=== PATIENT | male | born 1960 | race Caucasian/White ===

== ENCOUNTER 2017-02-24 08:48 | Day surgery (SDC) | payer BC ==
--- NOTE | 2017-02-23 13:13 | Pre-Procedure Note/Attestation ---
Pre-Procedure Note/Attestation Complete Prior to Procedure Planned Procedure: left Procedure Narrative: Left shoulder scope, sad, mini ayaz, subscap repair, biceps tenodesis and possible labral repair Indications for Procedure Pre-Operative Diagnosis: left shoulder subscap tear, biceps tendon tear, labral tear Attestation I attest that I discussed the nature of the procedure; its benefits; risks and complications; and alternatives (and the risks and benefits of such alternatives ), prior to the procedure, with the patient (or the patient's legal bank representative). I attest that, if there was a reasonable possibility of needing a blood transfusion, the patient (or the patient's legal bank representative) was given the [place] [facility] standardized written summary, pursuant to the Dillan Mitchel Blood Safety Act ([place] Health and Safety Code # 1645, as amended). I attest that I re-evaluated the patient just prior to the surgery and that there has been no change in the patient's H&P, except as documented below:NONE ASHLEY ARANA Feb 23, 2017 13:13
[2017-02-24] VITALS (7 sets, daily range): BP systolic 127–161; BP diastolic 75–104
[~2017-02-24] VITALS: Ht 182.9 cm; Wt 79.4 kg
--- NOTE | 2017-02-24 08:02 | Anethesia Preoperative Eval ---
Anesthesia Pre-op PMH/ROS General Date of Evaluation: Feb 24, 2017 Mallampati Score Class I : Soft palate, uvula, fauces, pillars visible Class II: Soft palate, uvula, fauces visible Class III: Soft palate, base of uvula visible Class IV: Only hard plate visible Allergies: Coded Allergies: No Known Allergies (Unverified , 02/20/17) MARY WHITTAKER M.D. Feb 24, 2017 08:02
[~2017-02-24 08:48] MED LIST: ceFAZolin 1gm in D5W 55ml IVP ONE; celeBREX 200mg Cap **SURGERY PATIENTS ONLY ORAL ONE; oxyCONTIN 20mg tab ORAL ONE
[2017-02-24] MEDS ORDERED: Tylenol #3 tab (300mg/30mg) ORAL PRN (11:45)
[2017-02-24] MEDS ORDERED: Norco 5mg/325mg tab ORAL PRN ×2 (11:45→13:00)
[2017-02-24] MEDS ORDERED: HYDROmorphone 1mg/ml Carpuject SUBQ PRN (11:45)
[2017-02-24] MEDS ORDERED: D5 1/2NS 1,000 ML IV SCH (11:45)
[2017-02-24] MEDS ORDERED: LR 1000ml ONE (12:00)
[2017-02-24] MEDS ORDERED: Alfentanil 2ml Inj ONE (12:00)
[2017-02-24] MEDS ORDERED: NS Irrig 4000ml IRRIG ONE (12:00)
[2017-02-24] MEDS ORDERED: Dexamethasone 4mg/ml vial ONE (12:00)
[2017-02-24] MEDS ORDERED: Propofol 10mg/ml 20ml IV ONE (12:00)
[2017-02-24] MEDS ORDERED: Midazolam 2mg/2ml Inj ONE (12:00)
[2017-02-24] MEDS ORDERED: Lidocaine 1% MPF 10mg/ml 5ml ONE (12:00)
[2017-02-24] MEDS ORDERED: LR 1000ml 1,000 ML IVLG SCH (12:58)
[2017-02-24] MEDS ORDERED: LORazepam Inj 2mg/ml 1ml IV PRN (13:00)
[2017-02-24] MEDS ORDERED: Norco 7.5mg/325mg tab ORAL PRN (13:00)
[2017-02-24] MEDS ORDERED: DiphenhydrAMINE 50mg/ml Inj IVP PRN (13:00)
[2017-02-24] MEDS ORDERED: Hydromorphone 0.5mg/0.5ml inj IVP PRN (13:00)
[2017-02-24] MEDS ORDERED: Meperidine 25mg/0.5ml Inj (FOR RIGORS ONLY) IV PRN (13:00)
[2017-02-24] MEDS ORDERED: Atropine Inj 1mg/10ml Syr IV PRN (13:00)
[2017-02-24] MEDS ORDERED: Ketorolac 30mg Inj IV PRN (13:00)
[2017-02-24] MEDS ORDERED: Oxycodone/Acetaminophen 5-325 ORAL PRN (13:00)
[2017-02-24] MEDS ORDERED: Metoclopramide 10mg/2ml Inj IVP PRN (13:00)
[2017-02-24] MEDS ORDERED: Ketorolac 60mg Inj IV PRN (13:00)
[2017-02-24] MEDS ORDERED: fentaNYL 100 mcg/2 mL IV PRN (13:00)
[2017-02-24] MEDS ORDERED: Midazolam 2mg/2ml Inj IVP PRN (13:00)
[2017-02-24] MEDS ORDERED: Ropivacaine 5mg/ml Vial 20ml INJ ONE ×2 (13:06→13:38)
--- NOTE | 2017-02-24 13:07 | Anethesia Preoperative Eval ---
Anesthesia Pre-op PMH/ROS General Date of Evaluation: Feb 24, 2017 Time of Evaluation: 12:14 Anesthesiologist: Anjum ASA Score: ASA 1 Mallampati Score Class I : Soft palate, uvula, fauces, pillars visible Class II: Soft palate, uvula, fauces visible Class III: Soft palate, base of uvula visible Class IV: Only hard plate visible Mallampati Classification: Class I Surgeon: Juana Diagnosis: L Shoulder Pain Surgical Procedure: L Shoulder Arthroscopy, Rotator Cuff Repair Anesthesia History: none Family History: no anesthesia problems Allergies: Coded Allergies: No Known Allergies (Unverified , 02/20/17) Medications: see eMAR Past Medical History Musculoskeletal/Integumentary: Reports: other - Back Injury PSxH Narrative: Lumbar Spine SX Anesthesia Pre-op Phys. Exam Physician Exam Last Vital Signs Date Time Temp Pulse Resp B/P Pulse Ox O2 Delivery O2 Flow Rate FiO2 02/24/17 09:58 98.2 59 18 127/75 99 Room Air Constitutional: NAD Neurologic: CN 2-12 intact Cardiovascular: RRR Respiratory: CTA Gastrointestinal: S/NT/ND Airway Exam Mallampati Score: Class I MO: full ROM: full Teeth: intact Anesthesia Pre-op A/P Risk Assessment & Plan Assessment: ASA 1 Plan: GA, BIS, Glidescope, L Supraclavicular Block Status Change Before Surgery: No Pre-Antibiotics Dru Grams Ancef IV Given Within 1 Hr of Incision: Yes Time Given: 12:36 Mik Valero MD Feb 24, 2017 13:07
--- NOTE | 2017-02-24 13:10 | Immediate Post-Op Evaluation ---
Immediate Post-Op Evalulation Immediate Post-Op Evalulation Procedure: L Shoulder Arthroscopy, Rotator Cuff Repair Date of Evaluation: Feb 24, 2017 Time of Evaluation: 15:22 IV Fluids: 1000 LR Blood Products: 0 Estimated Blood Loss: 25 Urinary Output: 0 Blood Pressure Systolic: 151 Blood Pressure Diastolic: 86 Pulse Rate: 73 Respiratory Rate: 16 O2 Sat by Pulse Oximetry: 100 Temperature (Fahrenheit): 97.1 Pain Score (1-10): 1 Nausea: No Vomiting: No Complications 0 Patient Status: awake, reacts, patent, extubated, none Hydration Status: adequate Dru Grams Ancef IV Given Within 1 Hr of Incision: Yes Time Given: 12:36 Mik Valero MD Feb 24, 2017 13:10
--- NOTE | 2017-02-24 13:11 | 48 Hour Post Anesthesia Eval ---
Post Anesthesia Evaluation Procedure: L Shoulder Arthroscopy, Rotator Cuff Repair Date of Evaluation: Feb 24, 2017 Time of Evaluation: 15:32 Blood Pressure Systolic: 134 0: 76 Pulse Rate: 72 Respiratory Rate: 18 Temperature (Fahrenheit): 98.2 O2 Sat by Pulse Oximetry: 100 Airway: patent Nausea: No Vomiting: No Pain Intensity: 1 Hydration Status: adequate Cardiopulmonary Status: Stable Mental Status/LOC: patient returned to baseline Follow-up Care/Observations: 0 Post-Anesthesia Complications: 0 Follow-up care needed: ready to discharge Mik Valero MD Feb 24, 2017 13:11
--- NOTE | 2017-02-24 14:57 | Brief Operative Note ---
Immediate Post Operative Note Operative Note Chief Complaint: left shoulder pain Pre-op Diagnosis: left shoulder subscap tear labral tear Procedure: Left shoulder scope, SAD, mini ayaz, subscap repair, labral repair, biceps tenodesis Post-op Diagnosis: same as pre-op Findings: consistent w/pre-op dx studies Surgeon: md justin Cartridge Assembler: valery adorno Anesthesiologist: md shona Anesthesia: general Specimen: none Complications: none Condition: stable Estimated Blood Loss: minimal Drains: none Implant(s) used?: Yes - bioemt, arthrex HILARIA ADORNO Feb 24, 2017 14:57
--- NOTE | 2017-02-25 00:30 | Operative Note - Dictated ---
DATE OF OPERATION: 02/24/2017 PREOPERATIVE DIAGNOSES: 1. Left shoulder subscapularis tear. 2. Left shoulder biceps subluxation from the bicipital groove. 3. Left shoulder anterior as well as inferior labral tearing with significant cyst formation. 4. Left shoulder subacromial impingement. POSTOPERATIVE DIAGNOSES: 1. Left shoulder subscapularis tear. 2. Left shoulder biceps subluxation from the bicipital groove. 3. Left shoulder anterior as well as inferior labral tearing with significant cyst formation. 4. Left shoulder subacromial impingement. 5. Significant anterior as well as anterior inferior chondral damage over the anterior leading edge of the glenoid measuring 7 mm in width and 1 cm in length at the area of the labral tear. PROCEDURES: 1. Left shoulder arthroscopy and extensive intra-articular shaving. 2. Left shoulder biceps tenotomy and tenodesis with mini-subpectoral incision. 3. Left shoulder anterior labral repair using 2 Biomet 1.5 mm JuggerKnot anchors with decompression of paralabral cyst. 4. Left shoulder arthroscopic subscapularis repair using a single Biomet 2.9 mm JuggerKnot anchor. 5. Left shoulder subacromial bursoscopy, bursectomy, and subacromial decompression. 6. Left shoulder mini-Reggie procedure (resection of inferior 30% of the distal end of the clavicle for coplaning). 7. Chondroplasty resection of loose fragments of chondral damage from the glenohumeral joint. SURGEON: Igor Arias M.D. CYBER WORKFORCE DEVELOPER AND MANAGER: Taylor Jasso PA-C. Generator Repairer was present during the actual operative portion of the case and was important and essential part of the operation. During the operation, the assistant principal held and operated the arthroscopic camera for visualization, assisted by manipulating the arm to help with visualization, and helped with essential parts of the repair process as necessary such as operating surgical instruments under surgeon supervision, suture management, and wound closures. ANESTHESIOLOGIST: Mik Valero M.D. ANESTHESIA: General LMA anesthesia combined with interscalene block. EBL: Minimal. COMPLICATIONS: None. SURGICAL INDICATION: Patient is a 56-year-old male who sustained the above injury to his shoulder. The patient was treated non-operative initially, but this did not alleviate the patients symptoms. Therefore, after discussing all non-surgical and surgical options, and discussing all foreseeable risk and benefits of surgery, the patient opted for surgical treatment as described above. PATIENT POSITIONING: Patient was brought to the operating room table and was placed on the operating room table. All pressure points were well padded. General anesthesia was induced and patient was then placed in the lateral decubitus position. All pressure points were well padded again and an axillary roll was placed. Patient shoulder was then prepped and draped in the usual sterile fashion. Time out was performed and the appropriate preoperative antibiotic was given by the anesthesiologist. EXAMINATION OF SHOULDER UNDER ANESTHESIA: The shoulder was examined under anesthesia with all muscles well relaxed. The shoulder was forward flexed, abducted and was placed through full range of external and internal rotation. The anterior, posterior, and inferior stability of the shoulder was checked. The exam revealed no evidence of adhesive capsulitis and no evidence of instability. PORTAL PLACEMENT: The posterior portal was established 2 cm inferior and 1 cm medial to the edge of the posterior acromion. 1 cm skin incision was made using an eleven blade and using the blunt obturator, the cannula was gently placed through the capsule. The midglenoid portal was established just lateral to the coracoid process under direct visualization. Direction of the cannula was first established using a spinal needle, and subsequently, the cannula was placed through the capsule with a blunt obturator. The anterior superior cannula was established under direct visualization off the anterior lateral edge of the acromion and just anterior to the biceps tendon through the rotator interval. The directional of cannula was first established using a spinal needle, and subsequently, the cannula was placed through the capsule with a blunt obturator. DIAGNOSTIC ARTHROSCOPY: The biceps tendon was probed and pulled through the joint for visualization. The biceps appeared to be normal. There was significant subluxation medially and it was underneath the previous attachment of the subscapularis. The biceps anchor was palpated with a probe and was visualized. There was some degenerative superior labral tearing. The posterior labrum and axillary recess was visualized. This was normal and there was no evidence of loose cartilage or fragments in this area. There was extensive chondral damage anteriorly as well as anterior inferiorly with unstable chondral flap with loose fragments in that area. The articular surface of the rotator cuff was visualized and probed next. There was no evidence of articular sided rotator cuff tear extending from the supraspinatus back to the posterior cuff. The Humeral head articular surface was then visualized. There was no evidence of articular cartilage damage. Next the anterior labrum, middle gleno-humeral ligament, subscapularis tendon, and the anterior inferior gleno-humeral ligament were evaluated. The anterior labrum, middle gleno-humeral ligament, and anterior inferior gleno-humeral ligaments were intact. However, the anterior inferior labrum had a large tear in it and extended from 6 o'clock to 9 o'clock position. This was in the same area as the cartilage damage. Also, there was a full-thickness tear of the subscapularis, although subscapularis was very mobile. At this point, the scope was moved to the midglenoid portal and the posterior structures including the posterior labrum, posterior capsule and posterior cuff were visualized. These structures were completely normal. The subscapularis recess was devoid of any loose bodies and the anterior capsule was well attached to the humeral neck. The middle and anterior inferior glenohumeral ligament was visualized. These structures were completely normal. OPERATIVE DEBRIDEMENTS AND REPAIR: Care was given to all partial thickness tears and frayed structures in the shoulder joint. The frayed rotator cuff and labrum was debrided using a shaver initially through the anterior portal and subsequently through the posterior portal to complete the debridement. This allowed for smooth debridement of all affected structures and all loose fragments were removed. The scope was placed in the anterior-superior cannula for visualization. Through the posterior cannula, initially, care was given to the posterior capsule. The posterior capsule was first prepared using a rasp to create microbleeding. Using standard suture passing instruments, a posterior pinch tuck plicating balancing suture was placed in the posterior inferior glenohumeral ligament through the labrum in a horizontal mattress fashion. The Suture was then placed outside the posterior cannula and was tied after completion of the anterior repair using Revo non-sliding knot with alternating-post half hitches. Then, through the midglenoid cannula, care was given to the torn anterior labrum. The scar portion of the anterior labrum was first mobilized with a liberator elevator off the glenoid neck. Once this was accomplished, the mobilization was taken more inferiorly all the way down to the 6 oclock position of the glenoid to allow transport of the labrum with the attached anterior inferior gleno-humeral ligament superiorly. The glenoid rim was then prepared by debriding it using a shaver and a julieth to provide bleeding bone for accepting the labrum and the ligament. Using the guide, drill holes were made at the 5, 4, and 2:30 oclock positions of the glenoid 1-2 mm medial to the margin of the articular cartilage on the glenoid surface. A all suture anchor loaded with a non-absorbable #2 strong suture was then placed and tapped through this drill hole. The security of the anchor inside the bone was checked and it was assured that the anchor is well seated and not proud. Using standard suture passing instruments and using pinch-tuck technique, the anterior inferior gleno-humeral ligament was shifted from inferiorly to anterior-superior direction and was incorporated with the labral bite. The suture was then passed through the capsulolabral complex, and it was then secured using a SMC sliding knot followed by 3 alternating-post half hitches. This process was performed for all anchors. The security of the repair was assured with a probe. The position of the humeral head was checked and it appeared that the head was sitting centrally within the glenoid as judged by the central bare area. At this point, care was given to the biceps tendon. A suture was placed through the biceps tendon and biceps tenotomy was performed. As the biceps was in the way of the subscapularis repair, decision was made to do an open subpectoral biceps tenodesis and then come back and fixed the subscapularis. Through a separate and distinct incision, a small incision was made underneath the pectoralis and actually fold. The incision was taken through subcutaneous tissue down to the humerus. Attachments were performed hugging the humerus to avoid damage to the neurovascular structure medially. At this point, the biceps tendon was identified in that area. This was retrieved through this incision and the excess biceps tendon was cut. A whipstitch was placed in the biceps tendon. A humeral socket was drilled to the size of 7 mm unicortically. Subsequently, the biceps tendon was dunked in the subpectoral area 1.5 cm proximal to the musculotendinous junction and was fixed with a Arthrex SwiveLock device. Additional sutures were used to tie the biceps over that area and there was excellent fixation. The arm was placed through range of motion. There was no excessive tension on the biceps tendon. Wounds were thoroughly irrigated using copious amount of fluid. This area was closed using 2-0 Vicryl suture and 3-0 Monocryl suture. At this point, care was given to the subscapularis repair. The posterior portal, anterior superior and midglenoid portals were established again. The subscapularis was visualized. At this point, the footprint of the subscapularis was debrided off the bone and the bone was eburnated to a bleeding surface. A 2.9 mm JuggerKnot anchor was placed and at this point, 2 horizontal mattress sutures were placed through the subscapularis. The sutures were then used to tie the subscapularis back onto the footprint. SMC knot followed with 3 half hitches were used. This provided excellent stability to subscapularis and great tension on the subscapularis. The anatomical structures appeared to be normal once this repair was done. At this point, care was given to the subacromial space. DIAGNOSTIC BURSOSCOPY AND SUBACROMIAL DECOMPRESSION: The subacromion bursa was entered from the posterior portal. The anterior portal was established under the CA ligament using a switching stick. Subacromial arthroscopy was initiated. There was extensive bursitis and thickened and inflamed bursa tissue present. The CA ligament appeared to be scuffed and frayed. The shaver was placed through the anterior cannula and debridement of the hypertrophic bursa tissue was accomplished. Once visualization was adequate, a lateral portal was established using a blunt trochar in the mid portion of the acromion bone in the anterior-posterior direction and approximately 2 cm lateral to the lateral edge of the acromion. Using combination of shaver and electrocautery the CA ligament was released from the undersurface of the acromion and a complete bursectomy was accomplished. At this point, a subacromial decompression was performed using a julieth initially taking off 5-8 mm of the anterolateral edge of the acromion from the lateral portal and viewing from the posterior portal. Then the lateral border of the undersurface of the acromion was decompressed to the same dept as the anterolateral edge. A posterior trough was then created in the acromion in line with the posterior edge of the clavicle. At this point, the scope was placed in the lateral portal and the subacromial decompression was performed from the posterior portal decompressing the undersurface of the acromion to dept of 5-8 mm. The decompression was performed anterior to the previously marked trough all the way medially to the level of the AC joint. At all times, care was given not to take off too much bone in order to avoid risk of fracture of the acromion. An excellent subacromial decompression was performed in this fashion. At this point, the bursal side of the rotator cuff was examined. All the bursa over the rotator cuff was removed and the rotator cuff was examined with a probe. The arm was placed into external rotation, neutral, and then internal rotation and there was no evidence of tear of the rotator cuff. The scope was then placed in the posterior portal and the subacromial decompression was rechecked to assure there is no area of bone spur that would be still impinging onto the rotator cuff. EVALUATION OF DISTAL CLAVICLE AND DISTAL CLAVICLE RESECTION: Care was given to the distal end of the clavicle. Using electrocautery and john, the distal end of the bursa and soft tissue around the distal end of the clavicle was debrided and cleaned. Care was given not to inflict excessive trauma to the ligaments of the AC joint. The distal end of the clavicle appeared to have an inferior osteophyte extending down well bellow the level of the acromion at the level of the AC joint. This appeared to be impinging onto the supraspinatus muscle belly and the musculotendinous junction of the rotator cuff. A mini-Reggie procedure was performed by using a julieth to resect the inferior 30% of the distal end of the clavicle. This decompression allowed space for the inferior structures to slide without impingement. This co-plained the inferior edge of the distal clavicle with the inferior edge of the acromion. CONDITION AT DISCHARGE FROM OPERATING ROOM: The skin was re-approximated and sterile dressing and sling were applied. All lap counts and instrument counts were correct. Patient tolerated the procedure well without complications and was taken to the recovery room in stable conditions. Igor Arias M.D. DR: DONAVON JOB#: [id number] CC:
== END 2017-02-24 16:25 | disposition home or self-care (01) ==
LOC: SUR 08:48
DX: M75.122 Complete rotator cuff tear or rupture of left shoulder, not specified as traumatic (principal); S43.432A Superior glenoid labrum lesion of left shoulder, initial encounter; S43.492A Other sprain of left shoulder joint, initial encounter; X58.XXXA Exposure to other specified factors, initial encounter; Y92.89 Other specified places as the place of occurrence of the external cause; Y99.9 Unspecified external cause status; M75.42 Impingement syndrome of left shoulder; M94.8X1 Other specified disorders of cartilage, shoulder
CPT/HCPCS: 23430; 29807; 29824; 29826; 29827; C1713; J0690; J1100; J2250; J2405; J2704; J2795; J3490; J7120; 94003; 94150